=== PATIENT | female | born 1950 | race Hispanic/Latino ===

== ENCOUNTER → 2018-10-07 | Outpatient (CLI) | payer OTHER ==
--- NOTE | 2018-10-07 10:38 | Diagnostic Imaging Report ---
EXAM: US ABDOMEN COMPLETE DATE: 10/07/2018 9:10 AM INDICATION: Cirrhosis COMPARISON: None TECHNIQUE: Transverse and longitudinal garcia scale and color doppler sonographic images of the abdomen were obtained. FINDINGS: LIVER Liver is cirrhotic in morphology with atrophy, coarse echotexture, and nodular contour. Measures 11.8 cm in the right mid clavicular line. No evidence of mass. SPLEEN Measures 8.9 cm in maximum diameter. Normal echogenicity, no masses. GALLBLADDER Status post cholecystectomy. BILE DUCTS No intra nor extra-hepatic biliary dilation. Common bile duct measures 0.5 cm PANCREAS: Visualized portions are normal. RIGHT KIDNEY: Measures 11.7 cm Echogenicity: Normal Collecting System: Mild right hydronephrosis. Stones: None Cyst/Mass: None LEFT KIDNEY: Measures 11.3 cm Echogenicity: Normal Collecting System: No hydronephrosis Stones: None Cyst/Mass: None VESSELS: Aorta: Visualized portions are within normal size limits Inferior Vena Cava: Visualized portions are normal Main Portal Vein: Measures 0.6 cm, normal size with hepatopetal flow. FREE FLUID: None IMPRESSION: Cirrhotic morphology to the liver. No sonographic evidence of mass. Mild right hydronephrosis. Signed by: Dr. Eugene Colón MD on 10/07/2018 10:35 AM
== END ==
LOC: US 08:56
PROVIDERS: ATTEND Internal Medicine Gastroenterology
DX: K74.69 Other cirrhosis of liver (principal); E66.3 Overweight; Z71.3 Dietary counseling and surveillance
CPT/HCPCS: 76700